=== PATIENT | female | born 1970 | race Caucasian/White ===

== ENCOUNTER → 2018-11-15 12:09 | Outpatient (CLI) | payer OTHER, SELFPAY ==
--- NOTE | 2018-11-15 | DI.MG.S_ITS ---
BILATERAL DIGITAL SCREENING MAMMOGRAM 3D/2D WITH CAD: 11/15/2018 CLINICAL: Routine screening. Family history of breast cancer. Comparison is made to exams dated: 10/01/2017 mammogram, 09/26/2016 mammogram, and 09/21/2015 mammogram - [facility]. The tissue of both breasts is predominantly fatty. Current study was also evaluated with a Computer Aided Detection (CAD) system. No significant masses, calcifications, or other findings are seen in either breast. There has been no significant interval change. IMPRESSION: NEGATIVE There is no mammographic evidence of malignancy. A 1 year screening mammogram is recommended. This exam was interpreted at Station ID: [id number]. NOTE: For mammograms, a report in lay terms will be sent to the patient. Approximately 15% of breast malignancies will not be visualized mammographically. In the management of a palpable breast mass, a negative mammogram must not discourage biopsy of a clinically suspicious lesion. Electronically Signed By: Timothy fisher/lacey:11/15/2018 13:22:19 letter sent: Normal Exam ACR BI-RADS Category 1: Negative 3341F
== END ==
PROVIDERS: Family Provider Family Medicine; PCP Family Medicine; Visit Provider Family Medicine
DX: Z12.31 Encounter for screening mammogram for malignant neoplasm of breast (principal); Z80.3 Family history of malignant neoplasm of breast
CPT/HCPCS: 77063; 77067

== ENCOUNTER 2019-06-01 07:46 | Day surgery (SDC) | payer OTHER, SELFPAY ==
--- NOTE | 2019-06-01 | PATH_ITS ---
[facility] Accession Number: [id number] . 01 Material submitted: . rectum - RECTAL BIOPSY . 01 Clinical history: . HISTORY OF RECTAL PROCTITIS . 02 Diagnosis: Rectum, Biopsy: Rectal mucosa with mild lamina propria edema and patchy extravasated red blood cells. Please see comment. Negative for active inflammation, granulomas, dysplasia and malignancy. MRV 06/02/2019 1220 Local . 02 Comment: The rectal mucosa shows mild extravasated red blood cells and mild lamina propria edema which could be procedure related, or secondary to trauma/prolapse related changes. Clinical correlation recommended. . 02 Electronically signed: . Cindy Huber MD, Pathologist NPI- [id number] . 01 Gross description: . RECTAL BIOPSY: Received in formalin are 2 fragment(s) of valverde, soft tissue measuring 0.2 x 0.1 x 0.1 cm to 0.3 x 0.2 x 0.2 cm submitted entirely in 1 cassette(s) /[facility] 06/01/2019 1924 Local . 02 Pathologist provided ICD-10: Z12.11 . 02 CPT . 775647 Performed at: 01 [facility] [address] [place] [address], [place], [place] [id number] MD Oliver Santo MD Phone: [phone] Performed at: 02 [facility] [address] [place], [place] [id number] MD Cindy Huber MD Phone: [phone]
[2019-06-01 08:06] VITALS: BP 132/89; PULSE 81; RESP 15; TEMP 36; O2SAT 98; BMI 37.3
[2019-06-01] MEDS: SODIUM CHLORIDE 0.9% 1,000 ML 100 ML IV (08:15)
--- NOTE | 2019-06-01 08:40 | PM.HP.1 ---
History of Present Illness History of Present Illness Chief complaint: [id number] Patient History Family & Social History Social History: household members spouse Meds Home Medications and Allergies Home Medications Medication Instructions Recorded Confirmed Type bupropion HCl [Wellbutrin SR] 300 mg PO QDAY #0 04/30/16 06/01/19 History spironolactone 25 mg PO DAILY 06/01/19 06/01/19 History tacrolimus 2 mg DAILY 06/01/19 06/01/19 History Allergies Allergy/AdvReac Type Severity Reaction Status Date / Time No Known Drug Allergies Allergy Verified 06/01/19 07:58 Review of Systems Review of Systems ROS Unobtainable: All systems reviewed & are unremarkable except as noted in HPI and below Exam Vital Signs (past 8 hours): - 06/01/19 08:06 Temperature 96.8 F L Pulse Rate 81 Respiratory Rate 15 Blood Pressure 132/89 Pulse Oximetry 98 Oxygen Delivery Method Room Air Narrative Exam Narrative: Awake alert oriented x3, no acute distress, lungs clear, heart regular rate and rhythm, abdomen nontender nondistended, lower extremity without edema Assessment & Plan Assessment & Plan narrative: Colon cancer screening history of UC for colonoscopy
[2019-06-01 09:45] VITALS: BP 107/67; PULSE 62; RESP 16; TEMP 36.7; O2SAT 97
--- NOTE | 2019-06-01 09:52 | PM.OP.ENDO ---
Operative Date/Time/Diagnoses Date of procedure: 06/01/19 Procedure & Clinicians Study performed: Colonoscopy with biopsy Moderate conscious sedation was administered by the endoscopy nurse and supervised by the endoscopist. The following parameters were monitored: Oxygen saturation, heart rate, blood pressure, and response to care. Same procedure as scheduled: Yes Indications: Colon cancer screening. History of ulcerative proctitis. Last colonoscopy was in 2016. Procedure Notes Procedure in detail: Prior to the procedure, history and physical was performed, and patient medications and allergies were reviewed. Preprocedure nursing history and assessment was reviewed. Patient identification and proposed procedure were verified by the physician and nurse in the procedure room. The physical status of the patient was reassessed after the procedure. After informed consent was obtained including risks, benefits, and alternatives, the scope was passed under direct vision. Throughout the procedure, the patient's blood pressure, pulse, and oxygen saturations were monitored continuously. The colonoscope was introduced through the anus and advanced to the cecum as identified by the appendiceal orifice and ileocecal valve. The patient tolerated the procedure well. Bowel prep was deemed adequate to detect polyps greater than 5 mm. Perianal and digital rectal examinations were unremarkable. Retroflexion in the rectum revealed small grade 1 internal hemorrhoids. The terminal ileum was normal appearing. There was a erythema and inflammatory changes in a 1 cm radius surrounding the appendiceal orifice. The remainder of the entire examined colon was normal appearing. Biopsies were taken from the rectum for assessment of disease activity. Impression: Normal terminal ileum Internal hemorrhoids Cecal patch The entire examined colon was otherwise normal appearing. Rectal biopsies taken Sedation minutes: 16 Complications: other (EBL minimal. No complications) Post-procedure Plan for aftercare: Follow-up biopsy results Repeat colonoscopy for screening purposes at a date to be determined pending biopsy results Follow-up with Dr Campos and Dr Paul as previously scheduled. Resume home medications Resume previous diet Discharge home with escort when discharge criteria met
[2019-06-01] MEDS: MIDAZOLAM 5 MG/5 ML VIAL IV (09:54)
[2019-06-01] MEDS: fentaNYL 250 MCG/5 ML INJ IV (09:55)
[2019-06-01 09:59] VITALS: BP 108/60; PULSE 70; RESP 11; O2SAT 97
[2019-06-01 10:07] VITALS: BP 121/77; PULSE 76; RESP 10; O2SAT 98
[2019-06-01 10:30] VITALS: BP 100/70; PULSE 70; RESP 16; TEMP 36.6; O2SAT 99
--- NOTE | 2019-06-01 10:30 | SUR.PHASEII ---
brought in, d/c instructions discussed, both voiced an understanding. BP low, IV bag to infuse. Pt states she is a little dizzy. Pt has good color. and no other symptoms.
[2019-06-01 10:43] VITALS: BP 115/70; PULSE 66; RESP 16; TEMP 36.7; O2SAT 99
--- NOTE | 2019-06-01 10:52 | SUR.PREOP ---
BP better, pt requesting to get dressed and leave. Pt dressed with assist of and left in stable condition.
== END 2019-06-01 10:48 | disposition home or self-care (01) ==
PROVIDERS: Family Provider Family Medicine; PCP Family Medicine; Visit Provider Internal Medicine
PROC: 0DJD8ZZ Inspection of Lower Intestinal Tract, Via Natural or Artificial Opening Endoscopic (ICD-10-PCS; CPT 45378; principal; 2019-06-01 09:00)
DX: Z12.11 Encounter for screening for malignant neoplasm of colon (principal); K64.0 First degree hemorrhoids
CPT/HCPCS: 45380; J2250; J3010

== ENCOUNTER → 2019-12-28 09:50 | Outpatient (CLI) | payer OTHER, SELFPAY ==
--- NOTE | 2019-12-28 | DI.RAD.S_ITS ---
PROCEDURE: XR LUMBAR SPINE MIN 4V INDICATIONS: SI JOINT PAIN TECHNIQUE: 3 views of the lumbar spine were acquired. COMPARISON: None. FINDINGS: Bones: 5 nonrib-bearing vertebrae are present. There is normal bony alignment. No vertebral body compression fractures. No suspicious bony lesions. Mild L1-L2, L2-L3 and L3-L4 degenerative changes. Soft tissues: Overlying bowel gas pattern is normal. No suspicious soft tissue calcifications. Oblique images: No pars defects. IMPRESSION: 1. Mild multilevel degenerative disc disease. 2. No acute osseous lesion. If symptoms and/or clinical suspicion for pathology persists, evaluation with MRI may be helpful for further assessment. Dictated by: Alyx Blanco MD, PhD on 12/28/2019 at 17:45 Approved by: Alyx Blanco MD, PhD on 12/28/2019 at 17:46
== END ==
PROVIDERS: Family Provider Family Medicine; PCP Family Medicine; Referring Provider Physical Medicine & Rehabilitation; Visit Provider Physical Medicine & Rehabilitation
DX: M53.3 Sacrococcygeal disorders, not elsewhere classified (principal); M51.36 Other intervertebral disc degeneration, lumbar region
CPT/HCPCS: 72110

== ENCOUNTER → 2020-02-15 14:30 | Outpatient (CLI) | payer OTHER, SELFPAY ==
--- NOTE | 2020-02-15 | DI.MG.S_ITS ---
BILATERAL DIGITAL SCREENING MAMMOGRAM 3D/2D WITH CAD: 02/15/2020 CLINICAL: Routine screening. Family history of breast cancer. Comparison is made to exams dated: 11/15/2018 mammogram, 10/01/2017 mammogram, and 09/26/2016 mammogram - [facility]. The tissue of both breasts is predominantly fatty. Current study was also evaluated with a Computer Aided Detection (CAD) system. No significant masses, calcifications, or other findings are seen in either breast. There has been no significant interval change. IMPRESSION: NEGATIVE There is no mammographic evidence of malignancy. A 1 year screening mammogram is recommended. This exam was interpreted at Station ID: [id number]. NOTE: For mammograms, a report in lay terms will be sent to the patient. Approximately 15% of breast malignancies will not be visualized mammographically. In the management of a palpable breast mass, a negative mammogram must not discourage biopsy of a clinically suspicious lesion. Electronically Signed By: Liz carey/lacey:02/15/2020 17:46:34 letter sent: Normal Exam ACR BI-RADS Category 1: Negative 3341F
== END ==
PROVIDERS: Family Provider Family Medicine; PCP Family Medicine; Referring Provider Family Medicine; Visit Provider Family Medicine
DX: Z12.31 Encounter for screening mammogram for malignant neoplasm of breast (principal); Z80.3 Family history of malignant neoplasm of breast
CPT/HCPCS: 77063; 77067

== ENCOUNTER → 2020-08-13 10:52 | Outpatient (CLI) | payer OTHER, SELFPAY ==
--- NOTE | 2020-08-13 | DI.MRI.S_ITS ---
BREAST MRI OF BOTH BREASTS: 08/13/2020 CLINICAL: Family history of malignant neoplasm of breast. Comparison is made to exams dated: 02/15/2020 mammogram, 11/15/2018 mammogram, and 10/01/2017 mammogram - [facility]. INDICATIONS: Family history of malignant neoplasm of breast TECHNIQUE: The patient was placed prone in a dedicated breast imaging coil. Precontrast axial STIR and 3D FLASH without fat saturation sequences were obtained. Both before and after bolus injection of contrast, sequential 1-minute axial 3D FLASH with fat saturation sequences for 3 time points, with subtraction images and maximum intensity projections (MIP's) generated. Delayed sagittal FLASH images with fat saturation were also obtained. Computer-aided detection, including computer algorithm analysis of MRI image data for lesion detection and characterization, pharmacokinetic analysis, with further physician review for interpretation, was performed. FINDINGS: Image quality: Excellent. There is mild background parenchymal enhancement. Right breast: No suspicious mass or abnormal non mass enhancement is identified. Left breast: No suspicious mass or abnormal non mass enhancement is identified. Miscellaneous: No axillary or internal mammary lymphadenopathy by size criteria. Visualized portions of the lungs and liver demonstrate no discrete suspicious lesions. IMPRESSION: NEGATIVE No suspicious mass or abnormal non mass enhancement is identified in the left or right breast. No axillary lymphadenopathy. BIRADS 1: Negative. COMMENT: The imaging literature indicates that a negative contrast breast MRI examination has a high sensitivity and a moderate specificity for detecting and excluding invasive carcinomas to a detection threshold of 3-5 mm; nonetheless, appropriate clinical and mammographic follow-up are recommended. MRI is not sensitive for detecting DCIS (ductal carcinoma in situ) and may not detect large invasive neoplasms that show only minimal enhancement such as mucinous carcinoma. If there are suspicious calcifications or clinically worrisome palpable masses, then biopsy should still be considered. Invasive neoplasms can be hidden by co-existent and benign enhancement caused by mastitis, hormone therapy effects, radiation therapy, , and recent biopsy or surgery. False positive examinations can occur in a number of circumstances, including breasts that have recently been subject to invasive procedures and those that contain atypical ductal hyperplasia, hormonally stimulated glandular tissue, fat necrosis, or radial scars. A 1 year screening mammogram is recommended. Future imaging is recommended as follows: 02/15/2021 screening mammogram. This exam was interpreted at Station ID: [id number]. Electronically Signed By: Milton Martinez M.D. ar/:08/13/2020 13:07:16 letter sent: Normal Exam ACR BI-RADS Category 1: Negative 3341F
== END ==
PROVIDERS: Family Provider Family Medicine; PCP Family Medicine; Referring Provider Family Medicine; Visit Provider Family Medicine
DX: Z12.39 Encounter for other screening for malignant neoplasm of breast (principal); Z80.3 Family history of malignant neoplasm of breast
CPT/HCPCS: 77049

== ENCOUNTER → 2021-03-18 08:04 | Outpatient (CLI) | payer OTHER, SELFPAY ==
--- NOTE | 2021-03-18 | DI.MG.S_ITS ---
BILATERAL DIGITAL SCREENING MAMMOGRAM 3D/2D WITH CAD: 03/18/2021 CLINICAL: Routine screening. Family history of breast cancer. Comparison is made to exams dated: 02/15/2020 mammogram, 11/15/2018 mammogram, and 10/01/2017 mammogram - . There are scattered fibroglandular elements in both breasts. Current study was also evaluated with a Computer Aided Detection (CAD) system. No significant masses, calcifications, or other findings are seen in either breast. There has been no significant interval change. IMPRESSION: NEGATIVE There is no mammographic evidence of malignancy. A 1 year screening mammogram is recommended. This exam was interpreted at Station ID: [id number]. NOTE: For mammograms, a report in lay terms will be sent to the patient. Approximately 15% of breast malignancies will not be visualized mammographically. In the management of a palpable breast mass, a negative mammogram must not discourage biopsy of a clinically suspicious lesion. Electronically Signed By: Oliver negrete/lacey:03/18/2021 08:41:57 letter sent: Normal Exam ACR BI-RADS Category 1: Negative 3341F
== END ==
PROVIDERS: Family Provider Family Medicine; PCP Family Medicine; Referring Provider Family Medicine; Visit Provider Family Medicine
DX: Z12.31 Encounter for screening mammogram for malignant neoplasm of breast (principal); Z80.3 Family history of malignant neoplasm of breast
CPT/HCPCS: 77063; 77067

== ENCOUNTER → 2021-04-05 12:30 | Outpatient (CLI) | payer OTHER, SELFPAY ==
--- NOTE | 2021-04-05 | DI.RAD.S_ITS ---
PROCEDURE: XR FOOT RT 2V INDICATIONS: Right Foot Pain TECHNIQUE: 3 views of the foot were acquired. COMPARISON: [facility], , FOOT 3V RIGHT, 09/19/2007, 12:11. FINDINGS: Bones: No fractures or dislocations. No suspicious bony lesions. Scattered degenerative subchondral sclerosis and spurring. Large plantar calcaneal spurring . Mild 1st MTP joint degeneration. Soft tissues: No tibiotalar joint effusion. Achilles tendon appears normal. IMPRESSION: Chronic degenerative changes as above. Overall, no interval change since 09/19/07. Dictated by: Jaswinder Pittman M.D. on 04/05/2021 at 14:10 Approved by: Jaswinder Pittman M.D. on 04/05/2021 at 14:13
== END ==
PROVIDERS: Family Provider Family Medicine; PCP Family Medicine; Referring Provider Family Medicine; Visit Provider Family Medicine
DX: M79.671 Pain in right foot (principal); M19.071 Primary osteoarthritis, right ankle and foot; M77.31 Calcaneal spur, right foot
CPT/HCPCS: 73620

== ENCOUNTER → 2021-09-09 11:52 | Outpatient (CLI) | payer OTHER, SELFPAY ==
[2021-09-09 13:38] LABS: COVID19 -Nasal RAPID Negative (Negative)
== END ==
PROVIDERS: Family Provider Family Medicine; PCP Family Medicine; Visit Provider Family Medicine Sleep Medicine
DX: Z20.822 Contact with and (suspected) exposure to COVID-19 (principal)
CPT/HCPCS: 87635; C9803

== ENCOUNTER 2021-09-11 07:20 | Day surgery (SDC) | payer OTHER, SELFPAY ==
--- NOTE | 2021-09-11 | PATH_ITS ---
[facility] Accession Number: [id number] No. of containers..03 Tissue . 01 Material submitted: . PART A: colon - RANDOM COLON BIOPSY @ 30CM PART B: colon - ASHLYN BIOPSY @ 20CM PART C: rectum - RECTAL COLON BIOPSY . 02 Diagnosis: A. Random Colon, 30 cm, Biopsy: Colonic mucosa with no significant diagnostic abnormality. Negative for active inflammation, granulomas, dysplasia, and malignancy. . B. Random Colon, 20 cm, Biopsy: Colonic mucosa with no significant diagnostic abnormality. Negative for active inflammation, granulomas, dysplasia, and malignancy. . C. Rectum, Biopsy: Colonic mucosa with patchy extravasated red blood cells in the lamina propria and no other significant diagnostic abnormality. Negative for active inflammation, granulomas, dysplasia and malignancy. Please see comment. [facility] 09/13/2021 1222 Local . 02 Comment: Part C: The presence of patchy extravasated red blood cells in the lamina propria could be due to trauma/prolapse, procedure-related change or, less likely, early ischemia-type change. There is no evidence of chronic or active colitis. . 02 Electronically signed: . Cindy Huber MD, Pathologist NPI- [id number] . 01 Gross description: . Part A: RANDOM COLON BIOPSY @ 30CM: Received in formalin are 2 fragment(s) of valverde, soft tissue measuring 0.2 x 0.1 x 0.1 cm to 0.1 x 0.1 x 0.1 cm submitted entirely in 1 cassette(s) Part B: ASHLYN BIOPSY @ 20CM: Received in formalin are 2 fragment(s) of valverde, soft tissue measuring 0.5 x 0.1 x 0.1 cm to 0.3 x 0.1 x 0.1 cm submitted entirely in 1 cassette(s) Part C: RECTAL COLON BIOPSY: Received in formalin are 4 fragment(s) of valverde, soft tissue measuring 0.2 x 0.1 x 0.1 cm to 0.1 x 0.1 x 0.1 cm submitted entirely in 1 cassette(s) /[facility] 09/12/2021 1305 Local . 02 Pathologist provided ICD-10: K51.211 . 02 CPT . 125050, 110254, 535512 Specimen Comment: A courtesy copy of this report has been sent to [phone] Performed at: 01 [facility] [address] [place] [address], [place], [place] [id number] MD Oliver Santo MD Phone: [phone] Performed at: 02 [facility] [address] [place], [place] [id number] MD Cindy Huber MD Phone: [phone]
[2021-09-11 07:28] VITALS: BMI 36.6
[2021-09-11 07:35] VITALS: BP 130/90; PULSE 75; RESP 18; TEMP 36.1; O2SAT 98
[2021-09-11] MEDS: SODIUM CHLORIDE 0.9% 1,000 ML 84 ML IV (07:35)
--- NOTE | 2021-09-11 08:33 | PM.HP.1 ---
History of Present Illness History of Present Illness Date Patient Seen: 09/11/21 Chief complaint: SDC Narrative: History of ulcerative proctitis, need for follow-up surveillance Patient History Medical History (Updated 09/11/21 @ 07:40 by Laly Montejo RN) Acne Depression H/O flexible sigmoidoscopy Ulcerative proctitis Surgical History (Updated 09/11/21 @ 07:40 by Laly Montejo RN) Hx of colonoscopy Family & Social History Social History: household members spouse Tobacco & Substance use: Smoking Status Never smoker alcohol intake frequency other Substance Use Type does not use Meds Home Medications and Allergies Home Medications Medication Instructions Recorded Confirmed Type bupropion HCl 200 mg tablet,12 hr 300 mg PO QDAY #0 04/30/16 09/11/21 History sustained-release (Wellbutrin SR) spironolactone 25 mg tablet 25 mg PO DAILY 06/01/19 09/11/21 History tacrolimus 1 mg capsule, 2 mg DAILY 06/01/19 09/11/21 History immediate-release Allergies Allergy/AdvReac Type Severity Reaction Status Date / Time No Known Drug Allergies Allergy Verified 09/11/21 07:38 Exam Vital Signs (past 8 hours): - 09/11/21 07:35 Temperature 97 F L Pulse Rate 75 Respiratory Rate 18 Blood Pressure 130/90 Pulse Oximetry 98 Oxygen Delivery Method Room Air Narrative Exam Narrative: Oropharynx free of lesions Chest clear to auscultation percussion Cardiac exam reveals no S3 or murmur Assessment & Plan Assessment & Plan narrative: History of ulcer proctitis need for follow-up sigmoidoscopy for surveillance. Delay may cause advancement of disease. Risks benefits alternatives been explained Time Spent With Patient Critical Care time: I spent a total of [] minutes of critical care time on this patient's care today; this time is exclusive of procedural time.
--- NOTE | 2021-09-11 08:46 | PM.OP.COLON ---
Operative Date/Time/Diagnoses Date of procedure: 09/11/21 Pre-op diagnosis: See indication and findings Procedure & Clinicians Study performed: Sigmoidoscopy Indications: Known ulcerative proctitis currently felt to be under good control with tacrolimus topical suppositories. Due for surveillance Procedure Notes Procedure in detail: After informed consent was obtained the patient was placed in left lateral decubitus position. The video colonoscope was introduced the rectum and passed to 50 cm/splenic flexure. On slow withdrawal the mucosa was carefully examined. The scope was removed. The patient tolerated procedure well. Blood loss none Complications none Sedation mac Findings 1.mucosa was generally normal but with patchy erythema more present in the rectosigmoid region. This was quite mild. Two biopsies were taken in 10 cm apart at 30 cm, 20 cm, and rectum. Patient should have follow-up sigmoidoscopy/colonoscopy in 2 years. She will follow-up with Dr. Campos
[2021-09-11 08:50] VITALS: BP 117/74; PULSE 72; RESP 16; TEMP 35.9; O2SAT 95
[2021-09-11 08:55] VITALS: BP 122/82; PULSE 76; RESP 16; O2SAT 98
[2021-09-11 09:00] VITALS: BP 114/81; PULSE 79; RESP 14; TEMP 36.2; O2SAT 98
[2021-09-11 09:05] VITALS: BP 130/89; PULSE 74; RESP 12; TEMP 36.2; O2SAT 96
[2021-09-11 09:13] VITALS: BP 133/87; PULSE 61; RESP 18; TEMP 36.2; O2SAT 98
--- NOTE | 2021-09-11 09:19 | SUR.PHASEII ---
pt given discharge instructions . Pt states she understands discharge instructions. Pt to be discharge with . Pt had cup of juice prior to disccharge.
== END 2021-09-11 09:22 | disposition home or self-care (01) ==
LOC: ENDO 07:22
PROVIDERS: Family Provider Family Medicine; PCP Family Medicine; Referring Provider Internal Medicine Gastroenterology; Visit Provider Internal Medicine Gastroenterology
PROC: 0DJD8ZZ Inspection of Lower Intestinal Tract, Via Natural or Artificial Opening Endoscopic (ICD-10-PCS; CPT 45378; principal; 2021-09-11 08:30)
DX: Z09 Encounter for follow-up examination after completed treatment for conditions other than malignant neoplasm (principal); Z87.19 Personal history of other diseases of the digestive system
CPT/HCPCS: 45331; J2704

== ENCOUNTER → 2022-04-09 13:51 | Outpatient (CLI) | payer OTHER, SELFPAY ==
--- NOTE | 2022-04-09 | DI.MG.S_ITS ---
BILATERAL DIGITAL SCREENING MAMMOGRAM 3D/2D WITH CAD: 04/09/2022 CLINICAL: Routine screening. Family history of breast cancer. Comparison is made to exams dated: 03/18/2021 mammogram, 02/15/2020 mammogram, 11/15/2018 mammogram, 10/01/2017 mammogram, and 09/26/2016 mammogram - [facility]. There are scattered areas of fibroglandular density in both breasts (category b / 25%-50% glandular tissue). Current study was also evaluated with a Computer Aided Detection (CAD) system. No significant masses, calcifications, or other findings are seen in either breast. There has been no significant interval change. IMPRESSION: NEGATIVE There is no mammographic evidence of malignancy. A 1 year screening mammogram is recommended. This exam was interpreted at Station ID: [id number]. NOTE: For mammograms, a report in lay terms will be sent to the patient. Approximately 15% of breast malignancies will not be visualized mammographically. In the management of a palpable breast mass, a negative mammogram must not discourage biopsy of a clinically suspicious lesion. Electronically Signed By: Murray stevenson/lacey:04/09/2022 15:40:40 letter sent: Normal Exam ACR BI-RADS Category 1: Negative 3341F
== END ==
PROVIDERS: Family Provider Family Medicine; PCP Family Medicine; Referring Provider Family Medicine; Visit Provider Family Medicine
DX: Z12.31 Encounter for screening mammogram for malignant neoplasm of breast (principal)
CPT/HCPCS: 77063; 77067

== ENCOUNTER 2022-10-15 10:30 | Outpatient (RCR) | payer OTHER, SELFPAY ==
--- NOTE | 2022-09-03 14:16 | PT.OIE ---
Current Diagnoses Stress incontinence (female) (male) (09/03/22) Pelvic muscle wasting (09/03/22) Past Medical History (Last Updated 09/11/21 @ 07:40 by Laly Motnejo RN) Acne Depression H/O flexible sigmoidoscopy Ulcerative proctitis Past Surgical History (Last Updated 09/11/21 @ 07:40 by Laly Montejo RN) Hx of colonoscopy Visit Care Team Role Provider Type Sanket Gotti MD Family Provider Physician Primary Care Provider Specialty: [facility] Address: [address] [place] [address], [facility] Email: [email or web address] JUAN Chapa Attending Provider Advanced Cell Coverer Referring Provider Specialty: [facility] Address: [address] [place] [address], [facility] Email: [email or web address] Physical Therapy Initial Evaluation PT-OP-A Visit Information Start: 09/03/22 09:35 Freq: Status: Active Protocol: Document 09/03/22 11:56 [facility] (Rec: 09/03/22 12:25 [facility] [id number]) Out-Patient Physical Therapy Visit Information Visit Information Visit Type Initial Evaluation Visit Start Time 12:00 Visit Stop Time 12:45 Total Visit Minutes 45 Visit Number 1 Evaluation Information Evaluation Date 09/03/22 PT-OP-B Current Condition Start: 09/03/22 09:35 Freq: Status: Active Protocol: Document 09/03/22 11:56 [facility] (Rec: 09/03/22 12:25 [facility] [id number]) Current Condition History of Current Condition Onset Date worse in the past 2 years Current Complaints worsening complaints of urinary leakage History of Current Condition any kind of real physical activity tends to make her leak and with age she has noticed more leakage occasionally with small amounts, feeling like she doesn't have as much control. History of ulcerative proctitis, she uses a suppository every other day. She went into menopause around 49 and just recently started using estrogen cream. She has history of 2 vaginal deliveries. She wakes up because her bladder wakes her up. Treatment Goals Patient/Caregiver Goals Cindy's goals include improving pelvic floor strength to reduce urinary leakage and to prevent any further symptoms Current Functional Impairments (Reported) Functional Limitations- Recreation/ pt reports c/o urinary leakage Hobbies with jumping or running activities and reports more frequent urgency PT-OP-F Manual Assessment Start: 09/03/22 09:35 Freq: Status: Active Protocol: Document 09/03/22 11:56 [facility] (Rec: 09/03/22 14:17 [facility] [id number]) Manual Assessments Soft Tissue Assessment Soft Tissue Mobility Assessment tightness, guarding, and tenderness in the suprapubic fascia PT-OP-I Pelvic Floor Start: 09/03/22 09:35 Freq: Status: Active Protocol: Document 09/03/22 11:56 [facility] (Rec: 09/03/22 14:15 [facility] [id number]) Pelvic Floor Assessment Urine Pelvic Floor Surgery No Urinary Symptoms Urge Sensation Leakage Size Medium Leakage Cause Exercise,Urge Leaks Per Day 2 per week Urine Pad Type Panty Liner Pelvic Clock Pelvic Clock 12-3 Atrophy Pelvic Clock 9-12 Atrophy Pelvic Clock Other atrophy over the rectal wall Prolapse Uterine Prolapse Grade 1 Cystocele Grade 1 Contraction Ability Voluntary Contraction Weak Voluntary Relaxation Weak Manual Muscle Testing Left 2 Manual Muscle Testing Right 3 Manual Muscle Testing Anterior 1 Manual Muscle Testing Posterior 3 Muscle Endurance (Seconds) 4 Comments Pelvic Floor Comments Cindy is weaker on the left lateral wall, she also notes a history of bursitis in the left hip. She is weaker in the anterior portion of the pelvic floor as well on both sides but left greater than Right side, there is atrophy noted over the posterior wall and thinning of the tissue PT-OP-Q Treatments Start: 09/03/22 09:35 Freq: Status: Active Protocol: Document 09/03/22 11:56 [facility] (Rec: 09/03/22 14:17 [facility] [id number]) Therapeutic Exercises Supine Exercises pelvic floor 5 sec hold an 10 sec relax Reps/Minutes x 10 reps 5 sec hold 10 sec relax Self-Care/Home Management Treatment Education Patient Education Home Exercise Program Other Education pt educated on toileting strategies as well as self massage for the suprapubic fascia PT-OP-T Assessment and Plan Start: 09/03/22 09:35 Freq: Status: Active Protocol: Document 09/03/22 11:56 [facility] (Rec: 09/03/22 12:25 [facility] [id number]) Physical Therapy Assessment Rehab Potential Rehabilitation Potential Excellent Evaluation Complexity Number of Personal Factors/Comorbidities 0 Number of Body Systems Impaired 1-2 Clinical Presentation at Evaluation Stable Impairments Impairments Activity Tolerance,Functional Activities,Soft Tissue Mobility,Strength,Tone Goals 3 Impairment Urinary incontinence that is worsening in the past couple of years, pt reports leaking approximately 2 times per week with exercise and or strong urge to void Home Theater Installer Goal (LTG) Cindy reports a overall reduction with urinary leakage and is no longer experiencing urgency LTG Duration 12 weeks 2 Impairment Decreased endurance of the pelvic floor <5 second hold time Short Term Goal (STG) Cindy is able to sustain a pelvic floor contraction in supine x 10 seconds STG Duration 5 weeks Intermediate Goal (LTG) Cindy is able to sustain a pelvic floor contraction in standing x 10 seconds LTG Duration 12 weeks 1 Impairment Pelvic floor weakness with MMT of left lateral wall 2/5, anterior wall 1/5, posterior and right lateral wall 3/5 Short Term Goal (STG) Cindy is educated in a pelvic floor strengthening program to facilitate all mcduffie of the levator ani. STG Duration 6 weeks Intermediate Goal (LTG) Cindy is able to increase her pelvic floor strength to 3 /5 or better for all mcduffie of the levator ani for improved pelvic organ support LTG Duration 12 weeks Assessment Summary Assessment Cindy is a 52 year old female referred to PT for pelvic floor strengthening. She reports she noted decreased strength of her pelvic floor following childbirth but it has been in the last few years since she went through menopause that leakage has been increasing. She also reports a increase in urinary urgency. She recently was prescribed a vaginal estrogen and she feels this may be helping some. Cindy has a history of ulcerative proctitis and the medication she is taking currently is keeping this under control. She denies any constipation. With pelvic floor examination today Cindy presents with grade 1/5 MMT for the anterior pelvic floor, grade 2/5 for the left lateral wall, and grade 3/5 MMT for the posterior and right lateral wall. She does report symptoms of left sided hip bursitis so this may be contributing to her symptoms of increased weakness on the left side. There is a grade 1 uterine and bladder prolapse present however Cindy denies any c/o symptoms of pelvic pressure or heaviness. With palpation over the bladder there is tightness present in the suprapubic fascia as well as tenderness. Due to her increased urgency treatment will include MFR techniques for the suprapubic fascia and Cindy will be given stretches for the abdominal fascia. She does note she can at times feel a pulling in her lower abdomen when stretched. Further assessment of her left hip will also be performed due to her history of bursitis. Cindy is a good candidate for PT. Physical Therapy Plan Frequency and Duration Frequency of Treatment 1x/Week Duration of treatment (weeks) 12 Plan of Care Start Date 09/03/22 Plan of Care End Date 11/26/22 Therapeutic Interventions Therapeutic Interventions Home Exercise Program, Neuromuscular Re-education, Patient/Caregiver Education, Therapeutic Exercises, Vestibular Rehabilitation Modalities Biofeedback Next Visit Focus/Plan Next Note Type Treatment Note Next Visit Plan Initiate EMG biofeedback next visit, assess left hip ROM and strength
--- NOTE | 2022-09-03 14:17 | PT.OPPOC ---
Physical, Occupational & Speech Therapy At Current Diagnoses Stress incontinence (female) (male) (09/03/22) Pelvic muscle wasting (09/03/22) Visit Care Team Role Provider Type Sanket Gotti MD Family Provider Physician Primary Care Provider Specialty: [facility] Address: [address] [place] [address], [place], [address] Email: [email or web address] JUAN Chapa Attending Provider Advanced Sales Representative Printing Supplies Referring Provider Specialty: [facility] Address: [address] [place] [address], [place], [address] Email: [email or web address] Plan Of Care PT-OP-T Assessment and Plan Start: 09/03/22 09:35 Freq: Status: Active Protocol: Document 09/03/22 11:56 [facility] (Rec: 09/03/22 12:25 [facility] [id number]) Physical Therapy Assessment Rehab Potential Rehabilitation Potential Excellent Evaluation Complexity Number of Personal Factors/Comorbidities 0 Number of Body Systems Impaired 1-2 Clinical Presentation at Evaluation Stable Impairments Impairments Activity Tolerance,Functional Activities,Soft Tissue Mobility,Strength,Tone Goals 3 Impairment Urinary incontinence that is worsening in the past couple of years, pt reports leaking approximately 2 times per week with exercise and or strong urge to void Supervisor Stone Goal (LTG) Cindy reports a overall reduction with urinary leakage and is no longer experiencing urgency LTG Duration 12 weeks 2 Impairment Decreased endurance of the pelvic floor <5 second hold time Short Term Goal (STG) Cindy is able to sustain a pelvic floor contraction in supine x 10 seconds STG Duration 5 weeks [facility] Goal (LTG) Cindy is able to sustain a pelvic floor contraction in standing x 10 seconds LTG Duration 12 weeks 1 Impairment Pelvic floor weakness with MMT of left lateral wall 2/5, anterior wall 1/5, posterior and right lateral wall 3/5 Short Term Goal (STG) Cindy is educated in a pelvic floor strengthening program to facilitate all mcduffie of the levator ani. STG Duration 6 weeks [facility] Goal (LTG) Cindy is able to increase her pelvic floor strength to 3 /5 or better for all mcduffie of the levator ani for improved pelvic organ support LTG Duration 12 weeks Assessment Summary Assessment Cindy is a 52 year old female referred to PT for pelvic floor strengthening. She reports she noted decreased strength of her pelvic floor following childbirth but it has been in the last few years since she went through menopause that leakage has been increasing. She also reports a increase in urinary urgency. She recently was prescribed a vaginal estrogen and she feels this may be helping some. Cindy has a history of ulcerative proctitis and the medication she is taking currently is keeping this under control. She denies any constipation. With pelvic floor examination today Cindy presents with grade 1/5 MMT for the anterior pelvic floor, grade 2/5 for the left lateral wall, and grade 3/5 MMT for the posterior and right lateral wall. She does report symptoms of left sided hip bursitis so this may be contributing to her symptoms of increased weakness on the left side. There is a grade 1 uterine and bladder prolapse present however Cindy denies any c/o symptoms of pelvic pressure or heaviness. With palpation over the bladder there is tightness present in the suprapubic fascia as well as tenderness. Due to her increased urgency treatment will include MFR techniques for the suprapubic fascia and Cindy will be given stretches for the abdominal fascia. She does note she can at times feel a pulling in her lower abdomen when stretched. Further assessment of her left hip will also be performed due to her history of bursitis. Cindy is a good candidate for PT. Physical Therapy Plan Frequency and Duration Frequency of Treatment 1x/Week Duration of treatment (weeks) 12 Plan of Care Start Date 09/03/22 Plan of Care End Date 11/26/22 Therapeutic Interventions Therapeutic Interventions Home Exercise Program, Neuromuscular Re-education, Patient/Caregiver Education, Therapeutic Exercises, Vestibular Rehabilitation Modalities Biofeedback Next Visit Focus/Plan Next Note Type Treatment Note Next Visit Plan Initiate EMG biofeedback next visit, assess left hip ROM and strength Plan of Care Dates Plan of Care Start Date 09/03/22 Plan of Care End Date 11/26/22 Electronically Signed by: Naty Monet, PT 09/04/22 [id number] If you are in agreement with this Plan of Care, please return a signed and dated copy. I have reviewed this Plan of Care and certify that the skilled therapy services above are required to meet the patient?s needs. Physician Signature Date Printed Name and Credentials Clinical Instructor Signature Printed Name and Credentials
--- NOTE | 2022-09-10 14:11 | PT.OTN ---
Current Diagnoses Stress incontinence (female) (male) (09/10/22) Pelvic muscle wasting (09/10/22) Physical Therapy Treatment Note PT-OP-A Visit Information Start: 09/03/22 09:35 Freq: Status: Active Protocol: Document 09/10/22 10:30 [facility] (Rec: 09/10/22 10:52 [facility] [id number]) Out-Patient Physical Therapy Visit Information Visit Information Visit Type Treatment Note Visit Start Time 10:34 Visit Stop Time 11:19 Total Visit Minutes 45 Visit Number 2 PT-OP-B Current Condition Start: 09/03/22 09:35 Freq: Status: Active Protocol: Document 09/03/22 11:56 [facility] (Rec: 09/03/22 12:25 [facility] [id number]) Current Condition History of Current Condition Onset Date worse in the past 2 years Current Complaints worsening complaints of urinary leakage History of Current Condition any kind of real physical activity tends to make her leak and with age she has noticed more leakage occasionally with small amounts, feeling like she doesn't have as much control. History of ulcerative proctitis, she uses a suppository every other day. She went into menapause around 49 and just recently started using estrogen cream. SHe has history of 2 vaginal deliveries. She wakes up because her bladder wakes her up. Treatment Goals Patient/Caregiver Goals Cindy's goals include improving pelvic floor strength to reduce urinary leakage and to prevent any further symptoms Current Functional Impairments (Reported) Functional Limitations- Recreation/ pt reports c/o urinary leakage Hobbies with jumping or running activities and reports more frequent urgency PT-OP-C Subjective Start: 09/03/22 09:35 Freq: Status: Active Protocol: Document 09/10/22 10:30 [facility] (Rec: 09/10/22 10:52 [facility] [id number]) OP-PT Subjective Patient Comments Patient Comments By the time she gets to the end of the exercises she feels fatigued. She feels like is doing more with her pelvic floor this week than last week and is feeling a stronger muscle contraction Patient Reported Progress Improving PT-OP-F Manual Assessment Start: 09/03/22 09:35 Freq: Status: Active Protocol: Document 09/03/22 11:56 [facility] (Rec: 09/03/22 14:17 [facility] [id number]) Manual Assessments Soft Tissue Assessment Soft Tissue Mobility Assessment tightness, guarding, and tenderness in the suprapubic fascia PT-OP-I Pelvic Floor Start: 09/03/22 09:35 Freq: Status: Active Protocol: Document 09/03/22 11:56 [facility] (Rec: 09/03/22 14:15 [facility] [id number]) Pelvic Floor Assessment Urine Pelvic Floor Surgery No Urinary Symptoms Urge Sensation Leakage Size Medium Leakage Cause Exercise,Urge Leaks Per Day 2 per week Urine Pad Type Panty Liner Pelvic Clock Pelvic Clock 12-3 Atrophy Pelvic Clock 9-12 Atrophy Pelvic Clock Other atrophy over the rectal wall Prolapse Uterine Prolapse Grade 1 Cystocele Grade 1 Contraction Ability Voluntary Contraction Weak Voluntary Relaxation Weak Manual Muscle Testing Left 2 Manual Muscle Testing Right 3 Manual Muscle Testing Anterior 1 Manual Muscle Testing Posterior 3 Muscle Endurance (Seconds) 4 Comments Pelvic Floor Comments Cindy is weaker on the left lateral wall, she also notes a history of bursitis in the left hip. She is weaker in the anterior portion of the pelvic floor as well on both sides but left greater than Right side, there is atrophy noted over the posterior wall and thinning of the tissue PT-OP-Q Treatments Start: 09/03/22 09:35 Freq: Status: Active Protocol: Document 09/10/22 10:30 [facility] (Rec: 09/10/22 11:14 [facility] [id number]) Therapeutic Exercises Supine Exercises ball squeeze with pelvic floor contraction Reps/Minutes x 10 reps Comments pt was fatigued by this point quick flicks Reps/Minutes 2 sec on 2 sec off x 10 reps pelvic floor 10 second hold Reps/Minutes 10 reps 16.6 39.9 Other Exercises clam shells Reps/Minutes 2 x 10 reps Neuro Re-Education Treatment Other Activities EMG biofeedback for the pelvic floor Comments EMG biofeedback for the pelvic floor looking both at resting tone as well as endurance holds and used GRAZYNA template to educate pt on anatomy of pelvic floor and how to properly contract PT-OP-T Assessment and Plan Start: 09/03/22 09:35 Freq: Status: Active Protocol: Document 09/10/22 10:30 [facility] (Rec: 09/10/22 14:11 [facility] [id number]) Physical Therapy Assessment Assessment Summary Assessment Cindy was started on EMG biofeedback today and she tolerated this well. She is feeling like she is feeling her pelvic floor more this week than last week. She feels when she gets fatigued she will feel her gluteals wanting to help her. I added in clam shells to HEP to start working lateral hip rotators Physical Therapy Plan Frequency and Duration Frequency of Treatment 1x/Week Duration of treatment (weeks) 12 Plan of Care Start Date 09/03/22 Plan of Care End Date 11/26/22 Therapeutic Interventions Therapeutic Interventions Home Exercise Program, Neuromuscular Re-education, Patient/Caregiver Education, Therapeutic Exercises, Vestibular Rehabilitation Modalities Biofeedback Next Visit Focus/Plan Next Note Type Treatment Note Next Visit Plan add in templates for eccentric control next week and start working on TA stabilization as well
--- NOTE | 2022-09-24 13:30 | PT.OTN ---
Current Diagnoses Stress incontinence (female) (male) (09/24/22) Pelvic muscle wasting (09/24/22) Physical Therapy Treatment Note PT-OP-A Visit Information Start: 09/03/22 09:35 Freq: Status: Active Protocol: Document 09/24/22 10:32 [facility] (Rec: 09/24/22 11:19 [facility] [id number]) Out-Patient Physical Therapy Visit Information Visit Information Visit Type Treatment Note Visit Start Time 10:32 Visit Stop Time 11:15 Total Visit Minutes 43 Visit Number 3 PT-OP-B Current Condition Start: 09/03/22 09:35 Freq: Status: Active Protocol: Document 09/03/22 11:56 [facility] (Rec: 09/03/22 12:25 [facility] [id number]) Current Condition History of Current Condition Onset Date worse in the past 2 years Current Complaints worsening complaints of urinary leakage History of Current Condition any kind of real physical activity tends to make her leak and with age she has noticed more leakage occasionally with small amounts, feeling like she doesn't have as much control. History of ulcerative proctitis, she uses a suppository every other day. She went into menapause around 49 and just recently started using estrogen cream. SHe has history of 2 vaginal deliveries. She wakes up because her bladder wakes her up. Treatment Goals Patient/Caregiver Goals Cindy's goals include improving pelvic floor strength to reduce urinary leakage and to prevent any further symptoms Current Functional Impairments (Reported) Functional Limitations- Recreation/ pt reports c/o urinary leakage Hobbies with jumping or running activities and reports more frequent urgency PT-OP-C Subjective Start: 09/03/22 09:35 Freq: Status: Active Protocol: Document 09/24/22 10:32 [facility] (Rec: 09/24/22 11:19 [facility] [id number]) OP-PT Subjective Patient Comments Patient Comments pt notes she traveled to [place] and then her father in law . She hasn't done her exercises as much. pt notes she hasn't had any leakage at all since she started PT-OP-F Manual Assessment Start: 09/03/22 09:35 Freq: Status: Active Protocol: Document 09/03/22 11:56 [facility] (Rec: 09/03/22 14:17 [facility] [id number]) Manual Assessments Soft Tissue Assessment Soft Tissue Mobility Assessment tightness, guarding, and tenderness in the suprapubic fascia PT-OP-I Pelvic Floor Start: 09/03/22 09:35 Freq: Status: Active Protocol: Document 09/03/22 11:56 [facility] (Rec: 09/03/22 14:15 [facility] [id number]) Pelvic Floor Assessment Urine Pelvic Floor Surgery No Urinary Symptoms Urge Sensation Leakage Size Medium Leakage Cause Exercise,Urge Leaks Per Day 2 per week Urine Pad Type Panty Liner Pelvic Clock Pelvic Clock 12-3 Atrophy Pelvic Clock 9-12 Atrophy Pelvic Clock Other atrophy over the rectal wall Prolapse Uterine Prolapse Grade 1 Cystocele Grade 1 Contraction Ability Voluntary Contraction Weak Voluntary Relaxation Weak Manual Muscle Testing Left 2 Manual Muscle Testing Right 3 Manual Muscle Testing Anterior 1 Manual Muscle Testing Posterior 3 Muscle Endurance (Seconds) 4 Comments Pelvic Floor Comments Cindy is weaker on the left lateral wall, she also notes a history of bursitis in the left hip. She is weaker in the anterior portion of the pelvic floor as well on both sides but left greater than Right side, there is atrophy noted over the posterior wall and thinning of the tissue PT-OP-Q Treatments Start: 09/03/22 09:35 Freq: Status: Active Protocol: Document 09/24/22 10:32 [facility] (Rec: 09/24/22 11:19 [facility] [id number]) Therapeutic Exercises Supine Exercises templates for coordination and eccentric control Reps/Minutes x 5 min pelvic floor 10 second hold Reps/Minutes max 14.7 8 average Neuro Re-Education Treatment Other Activities EMG biofeedback for the pelvic floor Comments resting tone 1.0 uv Self-Care/Home Management Treatment Education Other Education education in Julva cream for home use for vaginal tissue, education on HEP PT-OP-T Assessment and Plan Start: 09/03/22 09:35 Freq: Status: Active Protocol: Document 09/24/22 10:32 [facility] (Rec: 09/24/22 13:29 [facility] [id number]) Physical Therapy Assessment Assessment Summary Assessment Cindy didn't have the same intensity of contraction this week as she hasn't been able to do her exercises as much. She lacks full endurance of her pelvic floor and she is not yet sustaining the full 10 seconds. She would like to try sitting or standing and we talked about at least one time per day doing her exercises laying down. She has not experienced any leakage since starting her exercise program. Physical Therapy Plan Frequency and Duration Frequency of Treatment 1x/Week Duration of treatment (weeks) 12 Plan of Care Start Date 09/03/22 Plan of Care End Date 11/26/22 Next Visit Focus/Plan Next Note Type Treatment Note Next Visit Plan review templates for eccentric contractions and begin TA stabilization next visit
--- NOTE | 2022-10-01 13:44 | PT.OTN ---
Current Diagnoses Stress incontinence (female) (male) (10/01/22) Pelvic muscle wasting (10/01/22) Physical Therapy Treatment Note PT-OP-A Visit Information Start: 09/03/22 09:35 Freq: Status: Active Protocol: Document 10/01/22 13:41 [facility] (Rec: 10/01/22 13:43 [facility] [id number]) Out-Patient Physical Therapy Visit Information Visit Information Visit Type Treatment Note Visit Start Time 10:30 Visit Stop Time 11:15 Total Visit Minutes 45 Visit Number 4 PT-OP-B Current Condition Start: 09/03/22 09:35 Freq: Status: Active Protocol: Document 09/03/22 11:56 [facility] (Rec: 09/03/22 12:25 [facility] [id number]) Current Condition History of Current Condition Onset Date worse in the past 2 years Current Complaints worsening complaints of urinary leakage History of Current Condition any kind of real physical activity tends to make her leak and with age she has noticed more leakage occasionally with small amounts, feeling like she doesn't have as much control. History of ulcerative proctitis, she uses a suppository every other day. She went into menapause around 49 and just recently started using estrogen cream. SHe has history of 2 vaginal deliveries. She wakes up because her bladder wakes her up. Treatment Goals Patient/Caregiver Goals Cinyd's goals include improving pelvic floor strength to reduce urinary leakage and to prevent any further symptoms Current Functional Impairments (Reported) Functional Limitations- Recreation/ pt reports c/o urinary leakage Hobbies with jumping or running activities and reports more frequent urgency PT-OP-C Subjective Start: 09/03/22 09:35 Freq: Status: Active Protocol: Document 10/01/22 10:30 [facility] (Rec: 10/01/22 11:18 [facility] [id number]) OP-PT Subjective Patient Comments Patient Comments pt reports it is easier to do the contractions laying down. She is feeling alittle more control except for some urgency. PT-OP-F Manual Assessment Start: 09/03/22 09:35 Freq: Status: Active Protocol: Document 09/03/22 11:56 [facility] (Rec: 09/03/22 14:17 [facility] [id number]) Manual Assessments Soft Tissue Assessment Soft Tissue Mobility Assessment tightness, guarding, and tenderness in the suprapubic fascia PT-OP-I Pelvic Floor Start: 09/03/22 09:35 Freq: Status: Active Protocol: Document 09/03/22 11:56 [facility] (Rec: 09/03/22 14:15 [facility] [id number]) Pelvic Floor Assessment Urine Pelvic Floor Surgery No Urinary Symptoms Urge Sensation Leakage Size Medium Leakage Cause Exercise,Urge Leaks Per Day 2 per week Urine Pad Type Panty Liner Pelvic Clock Pelvic Clock 12-3 Atrophy Pelvic Clock 9-12 Atrophy Pelvic Clock Other atrophy over the rectal wall Prolapse Uterine Prolapse Grade 1 Cystocele Grade 1 Contraction Ability Voluntary Contraction Weak Voluntary Relaxation Weak Manual Muscle Testing Left 2 Manual Muscle Testing Right 3 Manual Muscle Testing Anterior 1 Manual Muscle Testing Posterior 3 Muscle Endurance (Seconds) 4 Comments Pelvic Floor Comments Cindy is weaker on the left lateral wall, she also notes a history of bursitis in the left hip. She is weaker in the anterior portion of the pelvic floor as well on both sides but left greater than Right side, there is atrophy noted over the posterior wall and thinning of the tissue PT-OP-Q Treatments Start: 09/03/22 09:35 Freq: Status: Active Protocol: Document 10/01/22 10:30 [facility] (Rec: 10/01/22 11:18 [facility] [id number]) Therapeutic Exercises Supine Exercises TA with march in supine Reps/Minutes x 10 reps ball squeeze with pelvic floor contraction Reps/Minutes x 10 reps Comments pt was fatigued by this point quick flicks Reps/Minutes 2 sec on 2 sec off Comments 37 max pelvic floor 10 second hold Reps/Minutes average of 18 max of 52 uv Other Exercises quadruped TA facilitation Reps/Minutes x 10 rep Self-Care/Home Management Treatment Education Other Education urge deference technique education and HEP instruction for core strengthening PT-OP-T Assessment and Plan Start: 09/03/22 09:35 Freq: Status: Active Protocol: Document 10/01/22 13:41 [facility] (Rec: 10/01/22 13:43 [facility] [id number]) Physical Therapy Assessment Goals 3 Impairment Urinary incontinence that is worsening in the past couple of years, pt reports leaking approximately 2 times per week with exercise and or strong urge to void Technical Support Professional Goal (LTG) Cindy reports a overall reduction with urinary leakage and is no longer experiencing urgency LTG Duration 12 weeks 2 Impairment Decreased endurance of the pelvic floor <5 second hold time Short Term Goal (STG) Cindy is able to sustain a pelvic floor contraction in supine x 10 seconds STG Duration 5 weeks Technical Support Professional Goal (LTG) Cindy is able to sustain a pelvic floor contraction in standing x 10 seconds LTG Duration 12 weeks 1 Impairment Pelvic floor weakness with MMT of left lateral wall 2/5, anterior wall 1/5, posterior and right lateral wall 3/5 Short Term Goal (STG) Cindy is educated in a pelvic floor strengthening program to facilitate all mcduffie of the levator ani. STG Duration 6 weeks [facility] Goal (LTG) Cindy is able to increase her pelvic floor strength to 3 /5 or better for all mcduffie of the levator ani for improved pelvic organ support LTG Duration 12 weeks Assessment Summary Assessment Cindy is showing progress with endurance and intensity of contractions this week. She was educated in quadruped TA and supine TA with october today and did really well with this. I also educated her on the urge deference technique Physical Therapy Plan Frequency and Duration Frequency of Treatment 1x/Week Duration of treatment (weeks) 12 Plan of Care Start Date 09/03/22 Plan of Care End Date 11/26/22 Therapeutic Interventions Therapeutic Interventions Home Exercise Program, Neuromuscular Re-education, Patient/Caregiver Education, Therapeutic Exercises, Vestibular Rehabilitation Modalities Biofeedback Next Visit Focus/Plan Next Note Type Treatment Note Next Visit Plan review TA stabilization and add on to quadruped TA work, continue with EMG biofeedback for the pelvic floor
--- NOTE | 2022-10-08 14:11 | PT.OTN ---
Current Diagnoses Stress incontinence (female) (male) (10/08/22) Pelvic muscle wasting (10/08/22) Physical Therapy Treatment Note PT-OP-A Visit Information Start: 09/03/22 09:35 Freq: Status: Active Protocol: Document 10/08/22 10:33 [facility] (Rec: 10/08/22 11:25 [facility] [id number]) Out-Patient Physical Therapy Visit Information Visit Information Visit Type Treatment Note Visit Start Time 10:35 Visit Stop Time 11:15 Total Visit Minutes 40 Visit Number 5 PT-OP-B Current Condition Start: 09/03/22 09:35 Freq: Status: Active Protocol: Document 09/03/22 11:56 [facility] (Rec: 09/03/22 12:25 [facility] [id number]) Current Condition History of Current Condition Onset Date worse in the past 2 years Current Complaints worsening complaints of urinary leakage History of Current Condition any kind of real physical activity tends to make her leak and with age she has noticed more leakage occasionally with small amounts, feeling like she doesn't have as much control. History of ulcerative proctitis, she uses a suppository every other day. She went into menapause around 49 and just recently started using estrogen cream. SHe has history of 2 vaginal deliveries. She wakes up because her bladder wakes her up. Treatment Goals Patient/Caregiver Goals Cindy's goals include improving pelvic floor strength to reduce urinary leakage and to prevent any further symptoms Current Functional Impairments (Reported) Functional Limitations- Recreation/ pt reports c/o urinary leakage Hobbies with jumping or running activities and reports more frequent urgency PT-OP-C Subjective Start: 09/03/22 09:35 Freq: Status: Active Protocol: Document 10/08/22 10:33 [facility] (Rec: 10/08/22 11:25 [facility] [id number]) OP-PT Subjective Patient Comments Patient Comments pt notes she hasn't had any issues at all this week. no urgency. She has only had to do the urge technique once time this week. Cindy has questions on the quadruped ther ex PT-OP-F Manual Assessment Start: 09/03/22 09:35 Freq: Status: Active Protocol: Document 09/03/22 11:56 [facility] (Rec: 09/03/22 14:17 [facility] [id number]) Manual Assessments Soft Tissue Assessment Soft Tissue Mobility Assessment tightness, guarding, and tenderness in the suprapubic fascia PT-OP-I Pelvic Floor Start: 09/03/22 09:35 Freq: Status: Active Protocol: Document 09/03/22 11:56 [facility] (Rec: 09/03/22 14:15 [facility] [id number]) Pelvic Floor Assessment Urine Pelvic Floor Surgery No Urinary Symptoms Urge Sensation Leakage Size Medium Leakage Cause Exercise,Urge Leaks Per Day 2 per week Urine Pad Type Panty Liner Pelvic Clock Pelvic Clock 12-3 Atrophy Pelvic Clock 9-12 Atrophy Pelvic Clock Other atrophy over the rectal wall Prolapse Uterine Prolapse Grade 1 Cystocele Grade 1 Contraction Ability Voluntary Contraction Weak Voluntary Relaxation Weak Manual Muscle Testing Left 2 Manual Muscle Testing Right 3 Manual Muscle Testing Anterior 1 Manual Muscle Testing Posterior 3 Muscle Endurance (Seconds) 4 Comments Pelvic Floor Comments Cindy is weaker on the left lateral wall, she also notes a history of bursitis in the left hip. She is weaker in the anterior portion of the pelvic floor as well on both sides but left greater than Right side, there is atrophy noted over the posterior wall and thinning of the tissue PT-OP-Q Treatments Start: 09/03/22 09:35 Freq: Status: Active Protocol: Document 10/08/22 10:33 [facility] (Rec: 10/08/22 11:25 [facility] [id number]) Therapeutic Exercises Supine Exercises crunches with ball squeeze Reps/Minutes x 10 reps level 2 lower abdominal progression Reps/Minutes able to complete both sides x 5 each TA with SLR Reps/Minutes x 10 each side TA with march in supine Reps/Minutes x 10 reps quick flicks Reps/Minutes x 10 Comments did in standing pelvic floor 10 second hold Reps/Minutes 17.8 uv average 32.7 uv pelvic floor 5 sec hold an 10 sec relax Reps/Minutes x 10 reps 5 sec hold 10 sec relax Comments worked in standing Other Exercises quadruped OAL Reps/Minutes x 5 quadruped OL Reps/Minutes x 5 quadruped OA Reps/Minutes x 5 quadruped TA facilitation Reps/Minutes x 10 rep Self-Care/Home Management Treatment Education Patient Education Home Exercise Program PT-OP-T Assessment and Plan Start: 09/03/22 09:35 Freq: Status: Active Protocol: Document 10/08/22 10:30 [facility] (Rec: 10/08/22 14:10 [facility] [id number]) Physical Therapy Assessment Assessment Summary Assessment Cindy was able to progress her pelvic floor to standing today. 5 sec hold felt challanging and she will start with this amountof time for standing. Her TA stabilization exercises were progress and she tolerated well Physical Therapy Plan Frequency and Duration Frequency of Treatment 1x/Week Duration of treatment (weeks) 12 Plan of Care Start Date 09/03/22 Plan of Care End Date 11/26/22 Next Visit Focus/Plan Next Note Type Treatment Note Next Visit Plan review all exercises as this will be pts last visit in PT
--- NOTE | 2022-10-15 14:10 | PT.OTN ---
Current Diagnoses Stress incontinence (female) (male) (10/15/22) Pelvic muscle wasting (10/15/22) Physical Therapy Treatment Note PT-OP-A Visit Information Start: 09/03/22 09:35 Freq: Status: Active Protocol: Document 10/15/22 10:29 [facility] (Rec: 10/15/22 11:18 [facility] [id number]) Out-Patient Physical Therapy Visit Information Visit Information Visit Type Treatment Note Visit Start Time 10:30 Visit Stop Time 11:15 Total Visit Minutes 45 Visit Number 6 PT-OP-B Current Condition Start: 09/03/22 09:35 Freq: Status: Active Protocol: Document 09/03/22 11:56 [facility] (Rec: 09/03/22 12:25 [facility] [id number]) Current Condition History of Current Condition Onset Date worse in the past 2 years Current Complaints worsening complaints of urinary leakage History of Current Condition any kind of real physical activity tends to make her leak and with age she has noticed more leakage occasionally with small amounts, feeling like she doesn't have as much control. History of ulcerative proctitis, she uses a suppository every other day. She went into menapause around 49 and just recently started using estrogen cream. SHe has history of 2 vaginal deliveries. She wakes up because her bladder wakes her up. Treatment Goals Patient/Caregiver Goals Cindy's goals include improving pelvic floor strength to reduce urinary leakage and to prevent any further symptoms Current Functional Impairments (Reported) Functional Limitations- Recreation/ pt reports c/o urinary leakage Hobbies with jumping or running activities and reports more frequent urgency PT-OP-C Subjective Start: 09/03/22 09:35 Freq: Status: Active Protocol: Document 10/15/22 10:29 [facility] (Rec: 10/15/22 14:06 [facility] [id number]) OP-PT Subjective Patient Comments Patient Comments Cindy reports these visits have been helpful for her with strengthening her pelvic floor as a prevention mechanism for any further urinary symptoms. She will be able to continue her exercises on her own Patient Reported Progress Improving PT-OP-F Manual Assessment Start: 09/03/22 09:35 Freq: Status: Active Protocol: Document 09/03/22 11:56 [facility] (Rec: 09/03/22 14:17 [facility] [id number]) Manual Assessments Soft Tissue Assessment Soft Tissue Mobility Assessment tightness, guarding, and tenderness in the suprapubic fascia PT-OP-I Pelvic Floor Start: 09/03/22 09:35 Freq: Status: Active Protocol: Document 09/03/22 11:56 [facility] (Rec: 09/03/22 14:15 [facility] [id number]) Pelvic Floor Assessment Urine Pelvic Floor Surgery No Urinary Symptoms Urge Sensation Leakage Size Medium Leakage Cause Exercise,Urge Leaks Per Day 2 per week Urine Pad Type Panty Liner Pelvic Clock Pelvic Clock 12-3 Atrophy Pelvic Clock 9-12 Atrophy Pelvic Clock Other atrophy over the rectal wall Prolapse Uterine Prolapse Grade 1 Cystocele Grade 1 Contraction Ability Voluntary Contraction Weak Voluntary Relaxation Weak Manual Muscle Testing Left 2 Manual Muscle Testing Right 3 Manual Muscle Testing Anterior 1 Manual Muscle Testing Posterior 3 Muscle Endurance (Seconds) 4 Comments Pelvic Floor Comments Cindy is weaker on the left lateral wall, she also notes a history of bursitis in the left hip. She is weaker in the anterior portion of the pelvic floor as well on both sides but left greater than Right side, there is atrophy noted over the posterior wall and thinning of the tissue PT-OP-Q Treatments Start: 09/03/22 09:35 Freq: Status: Active Protocol: Document 10/15/22 10:29 [facility] (Rec: 10/15/22 11:18 [facility] [id number]) Therapeutic Exercises Supine Exercises crunches with ball squeeze Reps/Minutes x 10 reps level 2 lower abdominal progression Reps/Minutes able to complete both sides x 5 each TA with SLR Reps/Minutes x 10 each side TA with march in supine Reps/Minutes x 10 reps quick flicks Reps/Minutes x 10 Comments did in standing pelvic floor 10 second hold Reps/Minutes 17.8 uv average 32.7 uv Other Exercises quadruped OAL Reps/Minutes x 5 quadruped OL Reps/Minutes x 5 quadruped OA Reps/Minutes x 5 quadruped TA facilitation Reps/Minutes x 10 rep clam shells Reps/Minutes 2 x 10 reps PT-OP-T Assessment and Plan Start: 09/03/22 09:35 Freq: Status: Active Protocol: Document 10/15/22 10:29 [facility] (Rec: 10/15/22 11:18 [facility] [id number]) Physical Therapy Assessment Rehab Potential Rehabilitation Potential Excellent Evaluation Complexity Number of Personal Factors/Comorbidities 0 Number of Body Systems Impaired 1-2 Clinical Presentation at Evaluation Stable Impairments Impairments Activity Tolerance,Functional Activities,Soft Tissue Mobility,Strength,Tone Goals 3 Impairment Urinary incontinence that is worsening in the past couple of years, pt reports leaking approximately 2 times per week with exercise and or strong urge to void Black Top Machine Operator Goal (LTG) Cnidy reports a overall reduction with urinary leakage and is no longer experiencing urgency GOAL MET LTG Duration 12 weeks 2 Impairment Decreased endurance of the pelvic floor <5 second hold time Short Term Goal (STG) Cindy is able to sustain a pelvic floor contraction in supine x 10 seconds GOAL MET STG Duration 5 weeks [facility] Goal (LTG) Cindy is able to sustain a pelvic floor contraction in standing x 10 seconds GOOD PROGRESS, pt will continue progressing this for home LTG Duration 12 weeks 1 Impairment Pelvic floor weakness with MMT of left lateral wall 2/5, anterior wall 1/5, posterior and right lateral wall 3/5 Short Term Goal (STG) Cindy is educated in a pelvic floor strengthening program to facilitate all mcduffie of the levator ani. GOAL MET STG Duration 6 weeks Black Top Machine Operator Goal (LTG) Cindy is able to increase her pelvic floor strength to 3 /5 or better for all mcduffie of the levator ani for improved pelvic organ support GOOD PROGRESS LTG Duration 12 weeks Assessment Summary Assessment All exercises were reviewed today and Cindy is tolerating all exercises well. She is independent with a home program and is making steady progress. She feels ready to continue her exercises on her own Physical Therapy Plan Therapeutic Interventions Therapeutic Interventions Home Exercise Program, Neuromuscular Re-education, Patient/Caregiver Education, Therapeutic Exercises, Vestibular Rehabilitation Modalities Biofeedback Discharge Physical Therapy Discharge Reasons Goals Met Discharge Comments SHANIQUA BOBBY
== END 2022-11-27 10:24 | disposition home or self-care (01) ==
LOC: PHYS 10:30
PROVIDERS: Family Provider Family Medicine; PCP Family Medicine; Referring Provider Internal Medicine; Visit Provider Internal Medicine
DX: N39.3 Stress incontinence (female) (male) (principal); N81.84 Pelvic muscle wasting
CPT/HCPCS: 97110; 97112; 97161; 97535

== ENCOUNTER → 2023-04-20 09:05 | Outpatient (CLI) | payer OTHER, SELFPAY ==
--- NOTE | 2023-04-20 | DI.MG.S_ITS ---
BILATERAL DIGITAL SCREENING MAMMOGRAM 3D/2D WITH CAD: 04/20/2023 CLINICAL: Routine screening. Family history of breast cancer. Comparison is made to exams dated: 04/09/2022 mammogram, 03/18/2021 mammogram, and 02/15/2020 mammogram - [facility]. There are scattered areas of fibroglandular density in both breasts (category b / 25%-50% glandular tissue). Current study was also evaluated with a Computer Aided Detection (CAD) system. There is a possible asymmetry in the right breast middle depth lateral region seen on the craniocaudal view only. This is more prominent. No other significant masses, calcifications, or other findings are seen in either breast. IMPRESSION: INCOMPLETE: NEEDS ADDITIONAL IMAGING EVALUATION The possible asymmetry in the right breast is indeterminate. Additional views with possible ultrasound are recommended. Based on the Tyrer Cuzick model (a risk assessment model) the patient's lifetime risk is 18.8% and her 10 year risk is 5.8%. According to the ACR, ACS, and NCCN guidelines, an annual breast MRI exam along with mammogram is recommended if the patient's lifetime risk is 20% or greater. This exam was interpreted at Station ID: [id number]. NOTE: For mammograms, a report in lay terms will be sent to the patient. Approximately 15% of breast malignancies will not be visualized mammographically. In the management of a palpable breast mass, a negative mammogram must not discourage biopsy of a clinically suspicious lesion. Electronically Signed By: Lincoln Burk M.D. lc/:04/20/2023 09:43:01 letter sent: Additional Imaging Needed ACR BI-RADS Category 0: Incomplete 3340F
== END ==
PROVIDERS: Family Provider Family Medicine; PCP Family Medicine; Referring Provider Family Medicine; Visit Provider Family Medicine
DX: Z12.31 Encounter for screening mammogram for malignant neoplasm of breast (principal); Z80.3 Family history of malignant neoplasm of breast
CPT/HCPCS: 77063; 77067

== ENCOUNTER → 2023-05-07 08:44 | Outpatient (CLI) | payer OTHER, SELFPAY ==
--- NOTE | 2023-05-07 | DI.MG.S_ITS ---
UNILATERAL RIGHT UNILATERAL LEFT DIAGNOSTIC MAMMOGRAM 3D/2D WITH ADDITIONAL VIEWS: 05/07/2023 CLINICAL: Additional evaluation requested from prior study. Comparison is made to exams dated: 04/20/2023 mammogram, 04/09/2022 mammogram, and 03/18/2021 mammogram - [facility]. There are scattered areas of fibroglandular density in the right breast (category b / 25%-50% glandular tissue). The possible asymmetry in the right breast middle depth lateral region seen on the craniocaudal view only is not seen on additional compression views. No other significant masses or calcifications are seen in the breast. IMPRESSION: BENIGN There is no mammographic evidence of malignancy. Return to annual mammogram screening schedule is recommended. Based on the Tyrer Cuzick model (a risk assessment model) the patient's lifetime risk is 18.8% and her 10 year risk is 5.8%. According to the ACR, ACS, and NCCN guidelines, an annual breast MRI exam along with mammogram is recommended if the patient's lifetime risk is 20% or greater. This exam was interpreted at Station ID: [id number]. NOTE: For mammograms, a report in lay terms will be sent to the patient. Approximately 15% of breast malignancies will not be visualized mammographically. In the management of a palpable breast mass, a negative mammogram must not discourage biopsy of a clinically suspicious lesion. Electronically Signed By: Edith Lynch M.D. lk/:05/15/2023 13:13:02 letter sent: Normal Exam ACR BI-RADS Category 2: Benign Finding(s) 3342F
== END ==
PROVIDERS: Family Provider Family Medicine; PCP Family Medicine; Referring Provider Family Medicine; Visit Provider Family Medicine
DX: N64.89 Other specified disorders of breast (principal)
CPT/HCPCS: 77065; G0279

== ENCOUNTER → 2024-04-22 15:00 | Outpatient (CLI) | payer OTHER, SELFPAY ==
--- NOTE | 2024-04-22 15:01 | DI.MG.S_ITS ---
BILATERAL DIGITAL SCREENING MAMMOGRAM 3D/2D WITH CAD: 04/22/2024 CLINICAL: Routine screening. Family history of breast cancer. Comparison is made to exams dated: 04/20/2023 mammogram, 04/09/2022 mammogram, and 03/18/2021 mammogram - [facility]. There are scattered areas of fibroglandular density (category b / 25%-50% glandular tissue). Current study was also evaluated with a Computer Aided Detection (CAD) system. No significant masses, calcifications, or other findings are seen in either breast. There has been no significant interval change. IMPRESSION: NEGATIVE There is no mammographic evidence of malignancy. A 1 year screening mammogram is recommended. Based on the Tyrer Cuzick model (a risk assessment model) the patient's lifetime risk is 18.6% and her 10 year risk is 6.0%. According to the ACR, ACS, and NCCN guidelines, an annual breast MRI exam along with mammogram is recommended if the patient's lifetime risk is 20% or greater. This exam was interpreted at Station ID: [id number]. NOTE: For mammograms, a report in lay terms will be sent to the patient. Approximately 15% of breast malignancies will not be visualized mammographically. In the management of a palpable breast mass, a negative mammogram must not discourage biopsy of a clinically suspicious lesion. Electronically Signed By: Murray stevenson/lacey:04/22/2024 15:40:10 letter sent: Normal Exam ACR BI-RADS Category 1: Negative
== END ==
LOC: MAMMO 15:01
PROVIDERS: Family Provider Family Medicine; PCP Family Medicine; Referring Provider Family Medicine; Visit Provider Family Medicine
DX: Z12.31 Encounter for screening mammogram for malignant neoplasm of breast (principal); Z80.3 Family history of malignant neoplasm of breast
CPT/HCPCS: 77063; 77067

== ENCOUNTER 2024-07-31 00:40 | Emergency (ER) | payer OTHER, SELFPAY ==
[2024-07-31] VITALS (9 sets, daily range): BP systolic 104–133; BP diastolic 57–89; PULSE 66–82; RESP 14–22; TEMP 36.8; O2SAT 94–99; BMI 35.1
--- NOTE | 2024-07-31 00:50 | DI.CT.S_ITS ---
PROCEDURE: CT ABDOMEN PELVIS W CON INDICATIONS: Upper abdominal discomfort TECHNIQUE: After the administration of intravenous contrast, axial sections acquired from the lung bases to the pubic symphysis. Coronal and sagittal reformats were performed. For radiation dose reduction, the following was used: automated exposure control, adjustment of mA and/or kV according to patient size. COMPARISON: None. FINDINGS: Image quality: Diagnostic. Peritoneum: No pneumoperitoneum or ascites. Bones: No acute osseous abnormality. Lower Chest: No acute abnormality. Liver: Normal in size and contour. Possible subcentimeter angioma in the left hepatic lobe (2/32). Gallbladder: No stones or pericholecystic fluid. Biliary tree: No intrahepatic or extrahepatic biliary ductal dilatation. The common bile duct measures 6 mm which is within normal limits. (2/48) Pancreas: Within normal limits. Spleen: Normal in size and contour. Kidneys: No hydronephrosis or obstructive urolithiasis. Adrenals: No adrenal nodularity. Bladder: Normal in size and wall thickness. : No acute abnormality. Stomach: Normal in size and contour. Bowel: Normal in diameter without any bowel obstruction. Appendix within normal limits (2/88). Lymph Nodes: No retroperitoneal, mesenteric, or inguinal lymphadenopathy. Vascular: No abdominal aortic aneurysm. The visualized arterial vasculature is patent. Soft Tissues: No acute abnormality. IMPRESSION: No acute CT abnormality of the abdomen/pelvis. Dictated by: Justin Rodrigues M.D. on 07/31/2024 at 2:11 Approved by: Justin Rodrigues M.D. on 07/31/2024 at 2:16
--- NOTE | 2024-07-31 00:51 | EKG_ITS ---
[address] [address] Test Date: 2024-07-31 Pat Name: Cindy Sweeney Department: Room: Gender: Female [employer] Est[employer]ator: DAVIDSON : 1970 Requested By: Order Number: [id number] Reading MD: Daryl Lopez Measurements Intervals [place] Rate: 88 P: 64 DC: 142 QRS: 38 QRSD: 78 T: 39 QT: 368 QTc: 445 Interpretive Statements Normal sinus rhythm Electronically Signed On 08-04-2024 9:35:30 PST by Daryl Lopez
[2024-07-31 00:57] LABS: Add Manual Diff / Slide Review NO; Basophils Absolute Auto 0 /uL (0-100); Basophils Percent Auto 0.4 % (0-2); Eosinophils Absolute Auto 100 /uL (0-450); Eosinophils Percent Auto 0.6 % (2-4); Hemoglobin 14.3 g/dL (12.0-16.0); Lymphocytes Absolute Auto 4000 /uL (1100-4500); Lymphocytes Percent Auto 33.2 % (25-40); Mean Corpuscular HGB Conc 33.2 % (30-36); Mean Corpuscular Hemoglobin 29.9 PG (26-34); Mean Corpuscular Volume 89.9 fL (80-100); Monocytes Absolute Auto 1000 /uL (0-900); Monocytes Percent Auto 8.1 % (3-14); Neutrophils Absolute Auto 7000 /uL (1500-7000); Neutrophils Percent Auto 57.7 % (50-75); Platelet Count 420 X10^3/uL (150-400); Red Blood Cell Count 4.78 X10^6/uL (4.0-5.2); Red Cell Distribution Width 13.9 % (11.6-14.8); White Blood Cell Count 12.1 X10^3/uL (4.5-11.0)
[2024-07-31 01:01] LABS: Alanine Aminotransferase 38 IU/L (<35); Albumin 4.2 g/dL (3.5-5.0); Albumin Globulin Ratio 1.3 (1.0-2.8); Alkaline Phosphatase 74 U/L (38-126); Aspartate Aminotransferase 63 IU/L (14-36); BUN Creatinine Ratio 11.8 (6-22); Bilirubin Total 0.4 mg/dL (0.2-1.3); Blood Urea Nitrogen 10 mg/dL (7-17); Calcium 9.4 mg/dL (8.4-10.2); Carbon Dioxide 25 mmol/L (22-32); Chloride 105 mmol/L (98-107); Estimated Glomerular Filt Rate > 60 mL/min (>60); Globulin 3.2 g/dL (1.7-4.1); Glucose 95 mg/dL (70-100); HEMOLYSIS < 15 (0-50); Lipase 179 U/L (23-300); Potassium 3.8 mmol/L (3.4-5.1); Sodium 136 mmol/L (137-145); Total Protein 7.4 g/dL (6.3-8.2)
--- NOTE | 2024-07-31 01:06 | ED.GENADULT ---
HPI - General Adult General Chief complaint: Abdominal Pain Stated complaint: abd pain Time Seen by Provider: 07/31/24 00:49 Source: patient and EMS Mode of arrival: EMS History of Present Illness HPI narrative: Patient was a 53-year-old female who arrives in the emergency department for evaluation of upper abdominal discomfort. States the symptoms started this morning when she was sleeping. It woke her from sleep. States she went to try to go use the restroom but this did not change any of her symptoms. Has had no vomiting. Has had kidney stones in the past this feels different than that. Went to bed last night feeling okay. No new medications. Has not tried anything for the symptoms prior to arrival. No urinary symptoms. Related Data Home Medications Medication Instructions Recorded Confirmed bupropion HCl 200 mg tablet,12 hr 300 mg PO QDAY ##0 04/30/16 09/11/21 sustained-release (Wellbutrin SR) spironolactone 25 mg tablet 25 mg PO DAILY 06/01/19 09/11/21 tacrolimus 1 mg capsule, 2 mg DAILY 06/01/19 09/11/21 immediate-release Allergies Allergy/AdvReac Type Severity Reaction Status Date / Time No Known Drug Allergies Allergy Verified 09/11/21 07:38 Review of Systems Review of Systems ROS Unobtainable: All systems reviewed & are unremarkable except as noted in HPI and below Patient History Medical History Depression Acne Ulcerative proctitis H/O flexible sigmoidoscopy Surgical History (Updated 09/11/21 @ 07:40 by Laly Montejo RN) Hx of colonoscopy Social History household members: spouse Smoking Status: Never smoker Smoking Status: Never smoker alcohol intake frequency: other Exam Initial Vital Signs Initial Vital Signs: Vital Signs Temperature 98.2 F 07/31/24 00:46 Pulse Rate 79 07/31/24 00:46 Respiratory Rate 22 07/31/24 00:46 Blood Pressure 133/79 07/31/24 00:46 Pulse Oximetry 98 07/31/24 00:46 Oxygen Delivery Method Room Air 07/31/24 00:46 Const General: cooperative and No ill appearing HENMT Head: normal to inspection and normocephalic Resp Effort & Inspection: normal respiratory effort Auscultation: clear to auscultation bilaterally Cardio Rate: regular rate Rhythm: regular rhythm GI Inspection: non-distended Palpation: soft, No firm, No guarding and tender (Bilateral upper abdomen) Skin General: no rashes or lesions noted Neuro General: patient alert, patient awake and moves all extremities Course Orders Ordered: ED Orders 07/31/24 00:43 Complete Blood Count AUTO DIFF Stat Comprehensive Metabolic Panel Stat Lipase Stat 07/31/24 00:45 EKG-12 Lead Stat 07/31/24 00:50 CT abdomen pelvis w con Stat Discontinued Medications Hydromorphone HCl (Hydromorphone 1 Mg Inj) 1 mg IV NOW ONE Stop: 07/31/24 00:51 Last Admin: 07/31/24 01:22 Dose: 1 mg Documented By: JER Ketorolac Tromethamine (Ketorolac 30 Mg/Ml Vial) 15 mg IV NOW ONE Stop: 07/31/24 01:07 Last Admin: 07/31/24 01:21 Dose: 15 mg Documented By: JER Vital Signs Vital signs: Vital Signs - 8 hr 07/31/24 00:46 07/31/24 00:53 07/31/24 00:54 Temperature 98.2 F Pulse Rate 79 82 Respiratory Rate 22 Blood Pressure 133/79 133/82 Pulse Oximetry 98 98 Oxygen Delivery Method Room Air 07/31/24 01:00 07/31/24 01:25 07/31/24 01:25 Temperature Pulse Rate 77 81 Respiratory Rate Blood Pressure 127/89 Pulse Oximetry 98 99 Oxygen Delivery Method 07/31/24 01:30 07/31/24 01:30 07/31/24 02:00 Temperature Pulse Rate 79 66 Respiratory Rate Blood Pressure 123/72 Pulse Oximetry 94 95 Oxygen Delivery Method Room Air 07/31/24 02:00 07/31/24 02:30 07/31/24 02:30 Temperature Pulse Rate 68 Respiratory Rate Blood Pressure 104/61 113/57 L Pulse Oximetry 98 Oxygen Delivery Method Medical Decision Making Lab Data Lab results reviewed: Yes I reviewed the patient's lab results. 07/31/24 00:43 07/31/24 00:43 Labs: Lab Results 07/31/24 Range/Units 00:43 WBC 12.1 H (4.5-11.0) X10^3/uL RBC 4.78 (4.0-5.2) X10^6/uL Hgb 14.3 (12.0-16.0) g/dL Hct 43.0 (36-46) % MCV 89.9 (80-100) fL MCH 29.9 (26-34) PG MCHC 33.2 (30-36) % RDW 13.9 (11.6-14.8) % Plt Count 420 H (150-400) X10^3/uL Neut % (Auto) 57.7 (50-75) % Lymph % (Auto) 33.2 (25-40) % [place] % (Auto) 8.1 (3-14) % Eos % (Auto) 0.6 L (2-4) % Baso % (Auto) 0.4 (0-2) % Neut # (Auto) 7000 (5758-0487) /uL Lymph # (Auto) 4000 (4324-8263) /uL [place] # (Auto) 1000 H (0-900) /uL Eos # (Auto) 100 (0-450) /uL Baso # (Auto) 0 (0-100) /uL Sodium 136 L (137-145) mmol/L Potassium 3.8 (3.4-5.1) mmol/L Chloride 105 (98-107) mmol/L Carbon Dioxide 25 (22-32) mmol/L BUN 10 (7-17) mg/dL Creatinine 0.85 (0.52-1.04) mg/dL Estimated GFR > 60 (>60) mL/min BUN/Creatinine Ratio 11.8 (6-22) Glucose 95 (70-100) mg/dL Calcium 9.4 (8.4-10.2) mg/dL Total Bilirubin 0.4 (0.2-1.3) mg/dL AST 63 H (14-36) IU/L ALT 38 H (<35) IU/L Alkaline Phosphatase 74 (38-126) U/L Total Protein 7.4 (6.3-8.2) g/dL Albumin 4.2 (3.5-5.0) g/dL Globulin 3.2 (1.7-4.1) g/dL Albumin/Globulin Ratio 1.3 (1.0-2.8) Lipase 179 (23-300) U/L Urine Dip Bedside Urine Glucose Negative Bedside Urine Bilirubin - Negative Bedside Urine Ketone - Negative Urine Specific [place] 1.000 Bedside Urine Occult Blood - Negative Bedside Urine pH 7.5 Bedside Urine Protein - Negative Bedside Urine Urobilinogen - Negative Bedside Urine Nitrite - Negative Bedside Urine Leukocytes - Negative Esterase Point of care testing: Urine Dip Bedside Urine Glucose Negative Bedside Urine Bilirubin - Negative Bedside Urine Ketone - Negative Urine Specific [place] 1.000 Bedside Urine Occult Blood - Negative Bedside Urine pH 7.5 Bedside Urine Protein - Negative Bedside Urine Urobilinogen - Negative Bedside Urine Nitrite - Negative Bedside Urine Leukocytes - Negative Esterase Imaging Data CT scan - abdomen/pelvis: Radiologist's Impression: PROCEDURE: CT ABDOMEN PELVIS W CON INDICATIONS: Upper abdominal discomfort TECHNIQUE: After the administration of intravenous contrast, axial sections acquired from the lung bases to the pubic symphysis. Coronal and sagittal reformats were performed. For radiation dose reduction, the following was used: automated exposure control, adjustment of mA and/or kV according to patient size. COMPARISON: None. FINDINGS: Image quality: Diagnostic. Peritoneum: No pneumoperitoneum or ascites. Bones: No acute osseous abnormality. Lower Chest: No acute abnormality. Liver: Normal in size and contour. Possible subcentimeter angioma in the left hepatic lobe (2/32). Gallbladder: No stones or pericholecystic fluid. Biliary tree: No intrahepatic or extrahepatic biliary ductal dilatation. The common bile duct measures 6 mm which is within normal limits. (2/48) Pancreas: Within normal limits. Spleen: Normal in size and contour. Kidneys: No hydronephrosis or obstructive urolithiasis. Adrenals: No adrenal nodularity. Bladder: Normal in size and wall thickness. : No acute abnormality. Stomach: Normal in size and contour. Bowel: Normal in diameter without any bowel obstruction. Appendix within normal limits (2/88). Lymph Nodes: No retroperitoneal, mesenteric, or inguinal lymphadenopathy. Vascular: No abdominal aortic aneurysm. The visualized arterial vasculature is patent. Soft Tissues: No acute abnormality. IMPRESSION: No acute CT abnormality of the abdomen/pelvis. ECG Data Attestation: I personally reviewed and interpreted this ECG as follows: Interpretation: Sinus rhythm Ventricular rate of 88 Normal axis Normal QRS Normal QTC No ST T wave changes MDM Narrative Medical decision making narrative: Patient does have a leukocytosis however on her exam there was no specific source of infection found. She reports improvement of symptoms after Toradol. Gallbladder on the CT scan is unremarkable. The rest of her CT scan is unremarkable. Urinalysis is unremarkable. No signs of nephrolithiasis. Low suspicion for pyelonephritis. EKGs unremarkable. Unsure of the exact etiology of the patient's symptoms however there was no indication for antibiotics or admission in the hospital or emergent surgical consultation. Will discharge patient home with return precautions. She expressed understanding and agreement with plan. Discharge Plan Departure Patient Disposition: Home Clinical Impression: Abdominal pain Instructions: DI for Abdominal Pain-Adult Activity Restrictions/Additional Instructions: Continue to take all of your medications as directed. Contact your primary doctor for a follow-up. Return to the emergency department for new or worsening symptoms. Prescriptions: No Action bupropion HCl [Wellbutrin SR] 200 MG tablet extended release 12 hr 300 mg PO QDAY Qty: 0 spironolactone 25 mg Tablet 25 mg PO DAILY Patient Comments: takes for acne tacrolimus 1 mg Capsule 2 mg DAILY Rx Instructions: per pt this is a suppository Referrals: Sanket Gotti MD [Primary Care Provider] - Stand Alone Forms: Patient Portal/API/Survey
[2024-07-31] MEDS: KETOROLAC 30 MG/ML VIAL 15 MG IV (01:21)
[2024-07-31] MEDS: HYDROMORPHONE 1 MG INJ IV (01:22)
== END 2024-07-31 03:46 | disposition home or self-care (01) ==
PROVIDERS: Emergency Provider Emergency Medicine; Family Provider Family Medicine; PCP Family Medicine
DX: R10.10 Upper abdominal pain, unspecified (principal)
CPT/HCPCS: 74177; 80053; 81003; 83690; 85025; 93005; 96374; 96375; 99284; J1171; J1885; Q9967

== ENCOUNTER → 2024-08-15 09:06 | Outpatient (CLI) | payer OTHER, SELFPAY ==
--- NOTE | 2024-08-15 09:07 | DI.US.S_ITS ---
PROCEDURE: US ABDOMEN LIMITED INDICATIONS: EPIGASTRIC PAIN TECHNIQUE: Real-time scanning was performed of the abdominal and retroperitoneal organs, with image documentation. COMPARISON: None. FINDINGS: Liver: Increased liver echogenicity, likely mild hepatic steatosis. Gallbladder: Multiple , mobile, small cholelithiasis. No wall thickening. No pericholecystic edema. Negative sonographic Gonzalez's sign. Biliary ducts: Intrahepatic bile ducts are non-dilated. Extrahepatic bile duct caliber measures 5 mm. Normal is 6-7 mm or less in diameter, or 10 mm or less post-cholecystectomy. Pancreas: Visualized portions of the pancreas are sonographically normal. Miscellaneous: No free abdominal fluid. IMPRESSION: Cholelithiasis without sonographic evidence of acute cholecystitis. Dictated by: Flash Hui M.D. on 08/15/2024 at 11:23 Approved by: Flash Hui M.D. on 08/15/2024 at 11:25
== END ==
PROVIDERS: Family Provider Family Medicine; PCP Family Medicine; Referring Provider Family Medicine; Visit Provider Family Medicine
DX: K80.20 Calculus of gallbladder without cholecystitis without obstruction (principal); K76.0 Fatty (change of) liver, not elsewhere classified; R10.13 Epigastric pain
CPT/HCPCS: 76705

== ENCOUNTER → 2025-05-05 12:53 | Outpatient (CLI) | payer OTHER, SELFPAY ==
--- NOTE | 2025-05-05 12:55 | DI.MG.S_ITS ---
MM screening mammo BI: 05/05/2025. BI-RADS: 1 CLINICAL: 54-year old female for bilateral screening mammogram. Tyrer-Cuzick lifetime risk of 20.2%. Current reported family history of breast cancer: mother, sister and paternal aunt. PRIOR EXAMS 04/22/2024, 05/07/2023, 04/20/2023, 04/09/2022. MAMMOGRAPHY TECHNIQUE: 2D and 3D (tomosynthesis) digital mammographic views obtained, with additional images as needed for full coverage. Current study was also evaluated with a Computer Aided Detection (CAD) system. DENSITY B. There are scattered areas of fibroglandular density. MAMMOGRAPHY FINDINGS Bilateral: No suspicious mass, asymmetry, microcalcification, or other abnormality seen. IMPRESSION: * No evidence of malignancy. RECOMMENDATIONS Bilateral * According to the Tyrer-Cuzick Risk Assessment Model, based on the information provided your patient has a greater than 20% lifetime risk for developing breast cancer. Consider supplemental screening with breast MRI and participation in a high risk screening program. * Annual screening mammography. OVERALL ASSESSMENT CATEGORY BI-RADS-1: Negative. The [employer] recommends annual screening mammography beginning at age 40 for women with average risk of breast cancer. ELECTRONICALLY SIGNED: Ashly Davenport M.D. on 05/05/2025 at 10:23:10 PM PT Interpreting Station ID: [id number]
== END ==
LOC: MAMMO 12:54
PROVIDERS: PCP Family Medicine; Referring Provider Family Medicine; Visit Provider Family Medicine
DX: Z12.31 Encounter for screening mammogram for malignant neoplasm of breast (principal)
CPT/HCPCS: 77063; 77067

== ENCOUNTER 2025-05-17 09:55 | Day surgery (SDC) | payer OTHER, SELFPAY ==
--- NOTE | 2025-05-17 10:30 | P.HP_ITS ---
History of Present Illness
--- NOTE | 2025-05-17 10:30 | PM.HP.IH.1 ---
History of Present Illness History of Present Illness Date Patient Seen: 05/17/25 Chief complaint: SDC Narrative: History of ulcerative colitis due for colorectal cancer screening at a 3 year interval. Known to have active disease in the most distal colon. [facility] Medical History Depression Acne Ulcerative proctitis H/O flexible sigmoidoscopy Surgical History (Updated 09/11/21 @ 07:40 by Laly Montejo RN) Hx of colonoscopy Social History household members: spouse Meds Home Medications and Allergies Home Medications ?Medication ?Instructions ?Recorded ?Confirmed ?Type bupropion HCl 200 mg tablet,12 hr 300 mg PO QDAY ##0 04/30/16 09/11/21 History sustained-release (Wellbutrin SR) spironolactone 25 mg tablet 25 mg PO DAILY 06/01/19 09/11/21 History tacrolimus 1 mg capsule, 2 mg DAILY 06/01/19 09/11/21 History immediate-release Allergies Allergy/AdvReac Type Severity Reaction Status Date / Time No Known Drug Allergies Allergy Verified 09/11/21 07:38 Exam Narrative Exam Narrative: Oropharynx free of lesions Chest clear to auscultation percussion Cardiac exam reveals no S3 or murmur Assessment & Plan Assessment & Plan narrative: History of ulcerative colitis due for colon cancer screening at a 3 year interval with random biopsies to every 10 cm. Risks, benefits, alternatives have been explained Time-Based Coding :: [TOTAL MINUTES] spent with patient and on the chart (including review of chart, obtaining history, exam, reviewing outside data, placing orders, documenting exam and treatment plan, and counseling patient) on [DATE]. PROFEE Sports Physician Document charge(s): No
--- NOTE | 2025-05-17 10:33 | PM.OP.COLON ---
Operative Date/Time/Diagnoses Date of procedure: 05/17/25 Time of procedure: 11:32 Pre-op diagnosis: See indication and findings Post-op diagnosis: same Procedure & Clinicians Study performed: Colonoscopy with biopsy Same procedure(s) as scheduled: Yes Indications: History of ulcerative colitis need for colorectal cancer screening Surgeon: Simon Nice Anesthesia Type: Other Procedure Notes Procedure in detail: After informed consent was obtained the patient was placed in left lateral decubitus position. The video colonoscope was introduced the rectum slowly advanced cecum. Preparation was good. On slow withdrawal mucosa was carefully examined. The scope was removed. The patient tolerated procedure well. Blood loss none Complications none Sedation mac Findings 1. Rectum a bit more hyperemic than normal but without rene inflammation. Biopsies taken 2. Otherwise negative colonoscopy to cecum. Two biopsies taken every 10 cm and placed in bottles right, transverse, and left colon. Will be in touch regarding biopsies was expect will be unremarkable. She will otherwise have colonoscopy again in 3 years.
--- NOTE | 2025-05-17 10:33 | P.OP.COLON_ITS ---
Operative Date/Time/Diagnoses
[2025-05-17 10:38] VITALS: BP 117/70; PULSE 80; RESP 20; TEMP 36.3; O2SAT 96
[2025-05-17] MEDS: LACTATED RINGERS 1,000 ML 84 ML IV (10:41)
[2025-05-17 11:36] VITALS: BP 104/75; PULSE 78; RESP 24; TEMP 36.1; O2SAT 97
[2025-05-17 11:39] VITALS: BP 105/82; PULSE 71; RESP 18; O2SAT 96
[2025-05-17 11:46] VITALS: BP 122/79; PULSE 75; RESP 20; O2SAT 98
[2025-05-17 11:49] VITALS: BP 146/78; PULSE 69; RESP 20; TEMP 36.1; O2SAT 99
[2025-05-17 11:51] VITALS: BP 119/87; PULSE 69; RESP 14; TEMP 36.1; O2SAT 97
== END 2025-05-17 12:10 | disposition home or self-care (01) ==
PROVIDERS: PCP Family Medicine; Referring Provider Internal Medicine Gastroenterology; Visit Provider Internal Medicine Gastroenterology
PROC: 0DJD8ZZ Inspection of Lower Intestinal Tract, Via Natural or Artificial Opening Endoscopic (ICD-10-PCS; CPT 45378; principal; 2025-05-17 11:00)
DX: Z12.11 Encounter for screening for malignant neoplasm of colon (principal); Z87.19 Personal history of other diseases of the digestive system
CPT/HCPCS: 45380; J2704; J7120

== ENCOUNTER → 2025-05-18 09:25 | Outpatient (CLI) | payer OTHER, SELFPAY ==
--- NOTE | 2025-05-18 09:27 | DI.RAD.S_ITS ---
PROCEDURE: XR CHEST 2V INDICATIONS: ONGOING COUGH AND FATIGUE AFTER URI TECHNIQUE: 2 views of the chest were acquired. COMPARISON: None. FINDINGS: Mild bilateral diffuse peribronchial thickening, more than expected for expiratory result and bronchitis, viral infection, asthma or other process should be considered. Follow-up suggested. Cardiopericardial silhouette, pulmonary vasculature within normal limits. No pneumothorax, no pleural effusion, no lobar consolidation. IMPRESSION: Peribronchial thickening as discussed above. Follow-up suggested. If symptoms persist or worsen, CT chest could be performed. Dictated by: Shady Ma M.D. on 05/18/2025 at 21:33 Approved by: Shady Ma M.D. on 05/18/2025 at 21:35
== END ==
PROVIDERS: PCP Family Medicine; Referring Provider Registered Nurse; Visit Provider Registered Nurse
DX: R05.2 Subacute cough (principal)
CPT/HCPCS: 71046

== ENCOUNTER → 2025-06-23 10:05 | Outpatient (CLI) | payer OTHER, SELFPAY ==
--- NOTE | 2025-06-23 10:06 | DI.RAD.S_ITS ---
PROCEDURE: XR CHEST 2V INDICATIONS: Subacute cough TECHNIQUE: 2 views of the chest were acquired. COMPARISON: [facility], CR, XR CHEST 2V, 05/18/2025, 9:28. FINDINGS: Surgical changes and devices: None. Lungs and pleura: Lungs are clear. No pleural effusions or pneumothorax. Mediastinum: Mediastinal contours are normal. Heart size is normal. Bones and chest wall: No suspicious bony abnormalities. Soft tissues appear unremarkable. IMPRESSION: No acute cardiopulmonary abnormality is seen. Dictated by: Sunny Harley M.D. on 06/23/2025 at 17:02 Approved by: Sunny Harley M.D. on 06/23/2025 at 17:02
== END ==
LOC: RAD 10:06
PROVIDERS: PCP Family Medicine; Referring Provider Family Medicine; Visit Provider Family Medicine
DX: R05.2 Subacute cough (principal)
CPT/HCPCS: 71046